=== PATIENT | female | born 1945 | race Caucasian/White ===

== ENCOUNTER → 2016-07-10 | Outpatient (CLI) | payer MEDICARE, MEDICAID ==
[~2016-07-10] MED LIST: AMOXIL875 MG PO; AQUATAB C 60 MG1 TER PO; CIPRO 500MG TA500 MG PO; MEDROL 4MG. DOSE4 MG PO
== END ==
LOC: LAB 14:31
DX: J40 Bronchitis, not specified as acute or chronic (principal)